=== PATIENT | male | born 1950 | race Caucasian/White ===

== ENCOUNTER → 2020-04-16 | Outpatient (CLI) | payer OTHER, BC ==
[~2020-04-16] MED LIST: ACCUPRIL40 MG PO; ASPIRIN325 PO; ATIVAN0.5 MG PO; BENADRYL ALLERG25 MG PO; BYSTOLIC10 MG PO; KEFLEX500 MG PO; PREDNISONE 5 MG5 M1 PO; VYTORIN 10-401 EACH PO
== END ==
LOC: SJCVC 10:54
PROVIDERS: ATTEND Internal Medicine
DX: I25.10 Atherosclerotic heart disease of native coronary artery without angina pectoris (principal); E78.5 Hyperlipidemia, unspecified; D68.51 Activated protein C resistance; E11.9 Type 2 diabetes mellitus without complications; I10 Essential (primary) hypertension; E78.00 Pure hypercholesterolemia, unspecified; Z98.890 Other specified postprocedural states; Z79.899 Other long term (current) drug therapy

== ENCOUNTER → 2020-10-19 | Outpatient (CLI) | payer OTHER, BC | LOC: SJCVC 16:32 | PROVIDERS: ATTEND Internal Medicine | DX: I25.10 Atherosclerotic heart disease of native coronary artery without angina pectoris (principal); E78.5 Hyperlipidemia, unspecified; D68.51 Activated protein C resistance; E11.9 Type 2 diabetes mellitus without complications; I82.501 Chronic embolism and thrombosis of unspecified deep veins of right lower extremity; E78.00 Pure hypercholesterolemia, unspecified; I10 Essential (primary) hypertension; Z98.890 Other specified postprocedural states; Z79.82 Long term (current) use of aspirin; Z79.899 Other long term (current) drug therapy; Z72.89 Other problems related to lifestyle ==

== ENCOUNTER → 2021-03-01 | Outpatient (CLI) | payer OTHER, BC | LOC: SJCVC 13:40 | PROVIDERS: ATTEND Internal Medicine | DX: I25.10 Atherosclerotic heart disease of native coronary artery without angina pectoris (principal); E78.5 Hyperlipidemia, unspecified; D68.51 Activated protein C resistance; E11.9 Type 2 diabetes mellitus without complications; I82.501 Chronic embolism and thrombosis of unspecified deep veins of right lower extremity; Z98.890 Other specified postprocedural states ==

== ENCOUNTER → 2021-05-31 | Outpatient (CLI) | payer OTHER, BC | LOC: SJCVCIMAG 10:39 | PROVIDERS: ATTEND Internal Medicine | DX: I08.0 Rheumatic disorders of both mitral and aortic valves (principal); I25.10 Atherosclerotic heart disease of native coronary artery without angina pectoris; Z98.890 Other specified postprocedural states ==

== ENCOUNTER → 2021-07-23 | Outpatient (CLI) | payer OTHER, BC | LOC: SJCVCIMAG 11:53 | PROVIDERS: ATTEND Internal Medicine | DX: I65.23 Occlusion and stenosis of bilateral carotid arteries (principal); I63.9 Cerebral infarction, unspecified; I25.10 Atherosclerotic heart disease of native coronary artery without angina pectoris; E11.9 Type 2 diabetes mellitus without complications; E78.00 Pure hypercholesterolemia, unspecified; E78.5 Hyperlipidemia, unspecified; I10 Essential (primary) hypertension; Z72.89 Other problems related to lifestyle; Z79.899 Other long term (current) drug therapy ==